=== PATIENT | female | born 1985 ===

== ENCOUNTER 2016-11-15 08:08 | Day surgery (SDC) | payer SELFPAY ==
[2016-11-15 08:53] VITALS: O2SAT 100
[2016-11-15] MEDS ORDERED: Lactated Ringer's 500 ML IV ONE (08:56)
[2016-11-15 09:11] VITALS: BMI 20.2
[2016-11-15] MEDS ORDERED: Propofol 10 mg/ml Inj (20 ML) ONE (10:51)
[2016-11-15 11:18] VITALS: TEMP 97
[2016-11-15 11:33] VITALS: BP 90/60; PULSE 60; RESP 12
== END 2016-11-15 11:38 | disposition home or self-care (01) ==
LOC: H.ENDO 08:08
PROVIDERS: ATTEND Internal Medicine Gastroenterology
DX: K52.9 Noninfective gastroenteritis and colitis, unspecified (principal); K64.8 Other hemorrhoids; R93.3 Abnormal findings on diagnostic imaging of other parts of digestive tract
CPT/HCPCS: 45380; 88305; J2704; J7120